=== PATIENT | male | born 1995 | race Caucasian/White ===

== ENCOUNTER 2019-03-01 00:59 | Inpatient (IN) | payer BC, OTHER ==
--- NOTE | 2019-03-01 02:37 | ED ---
Psych HPI - General Chief Complaint: Psychiatric Symptoms Stated Complaint: Suicidal Time Seen by Provider: 03/01/19 01:27 Source: patient Mode of arrival: EMS - History of Present Illness Initial Comments: This patient is a 23-year-old man with history of anxiety who presents to have psychiatric evaluation. The patient states that he had been with some friends who had noticed that he had engaged in some cutting behavior. The patient states that he does is occasionally when he is feeling very stressed. He states that he had taken a shaving razor and made some superficial cuts to the bilateral forearms. The patient states that he is not feeling suicidal. He states that he sometimes does this deal with stress. States his last tetanus shot was less than 4 years ago MD Complaint: other -: hour(s) History of same: Yes Quality: constant Improves With: none Worsens With: none Associated Symptoms: denies other symptoms - Related Data Home Medications Medication Instructions Recorded Confirmed Venlafaxine HCl [Effexor XR] 75 mg PO DAILY 03/01/19 03/01/19 Allergies Allergy/AdvReac Type Severity Reaction Status Date / Time No Known Allergies Allergy Verified 03/01/19 05:49 Review of Systems ROS Statement: Those systems with pertinent positive or pertinent negative responses have been documented in the HPI. ROS Other: All systems not noted in ROS Statement are negative. Constitutional: Denies: fever, chills Respiratory: Denies: cough, dyspnea Cardiovascular: Denies: chest pain, palpitations Gastrointestinal: Denies: abdominal pain, vomiting Musculoskeletal: Denies: back pain Skin: Reports: as per HPI Neurological: Denies: headache, weakness, numbness Past Medical History Past Medical History: No Reported History History of Any Multi-Drug Resistant Organisms: None Reported Past Surgical History: No Surgical Hx Reported Past Psychological History: Anxiety, Depression Smoking Status: Current every day smoker Past Alcohol Use History: Occasional Past Drug Use History: None Reported General Exam Limitations: no limitations General appearance: alert, in no apparent distress Head exam: Present: atraumatic, normocephalic Eye exam: Present: normal appearance. Absent: scleral icterus, conjunctival injection Respiratory exam: Present: normal lung sounds bilaterally. Absent: respiratory distress, wheezes, rales, rhonchi, stridor Cardiovascular Exam: Present: regular rate, normal rhythm, normal heart sounds. Absent: systolic murmur, diastolic murmur, rubs, gallop GI/Abdominal exam: Present: soft. Absent: distended, tenderness, guarding, rebound, mass Extremities exam: Present: other (Patient has some abrasions to the bilateral forearms but no full thickness lacerations.) Back exam: Present: normal inspection Neurological exam: Present: alert, oriented X3 Psychiatric exam: Present: normal affect. Absent: depressed, agitated, flat affect, manic, homicidal ideation, suicidal ideation Skin exam: Present: warm, dry, normal color. Absent: rash Course Vital Signs 03/01/19 03/01/19 01:04 03:54 Temperature 98.3 F 99.6 F Pulse Rate 95 109 H Respiratory 16 16 Rate Blood Pressure 137/94 141/80 O2 Sat by Pulse 99 95 Oximetry Medical Decision Making - Lab Data Result diagrams: 03/02/19 09:19 03/02/19 09:19 Disposition Clinical Impression: Mood disorder Disposition: ADMITTED IP TO THIS [facility] Condition: Fair Is patient prescribed a controlled substance at d/c from ED?: No
[2019-03-01] MEDS ORDERED: MAGNESIUM HYDROXIDE 2,400 MG/10 ML CUP PO PRN (05:38)
[2019-03-01] MEDS ORDERED: LORazepam 1 MG TAB PO PRN ×2 (05:38→11:28)
[2019-03-01] MEDS ORDERED: MAG HYDROX/AL HYDROX/SIMETH 30 ML CUP PO PRN (05:38)
[2019-03-01] MEDS ORDERED: ACETAMINOPHEN TAB 325 MG TAB PO PRN (05:38)
[2019-03-01] MEDS ORDERED: ZIPRASIDONE 20 MG VIAL IM PRN (05:38)
[2019-03-01 06:01] VITALS: BMI 27.2
--- NOTE | 2019-03-01 07:18 | P.CONS ---
History of Present Illness - Reason for Consult Consult date: 03/01/19 - History of Present Illness The patient is a 23 yo M with a PMH of self-cutting presented to the ED for the above-mentioned behavior. He notes that he cuts his forearms with a razor blade when he feels very stressed out. He otherwise denied additional complaints. Denied any suicidal ideation. He further denied chest pain, shortness of breath, cough, fever, chills, abdominal pain, nausea, vomiting, or diarrhea. Review of Systems Pertinent positives and negatives as discussed in HPI, a complete review of systems was performed and all other systems are negative. Past Medical History Past Medical History: No Reported History History of Any Multi-Drug Resistant Organisms: None Reported Past Surgical History: No Surgical Hx Reported Past Anesthesia/Blood Transfusion Reactions: No Reported Reaction Smoking Status: Current every day smoker Medications and Allergies Home Medications Medication Instructions Recorded Confirmed Type Venlafaxine HCl [Effexor XR] 75 mg PO DAILY 03/01/19 03/01/19 History Allergies Allergy/AdvReac Type Severity Reaction Status Date / Time No Known Allergies Allergy Verified 03/01/19 05:49 Physical Exam Vitals: Vital Signs Temp Pulse Pulse Resp BP BP Pulse Ox 03/01/19 05:54 98.7 F 89 18 142/80 03/01/19 03:54 99.6 F 109 H 16 141/80 95 03/01/19 01:04 98.3 F 95 16 137/94 99 Intake and Output 02/28/19 03/01/19 03/01/19 22:59 06:59 14:59 Other: Weight 85.729 kg General: non toxic, no distress, appears at stated age, normal weight Derm: Bilaterally anterior forearm healing lacerations and excoriations warm, dry Head: atraumatic, normocephalic, symmetric Eyes: EOMI, no lid lag, anicteric sclera, pupils equal round reactive to light ENT: Nose and ears atraumatic, no thrush, no pharyngeal erythema Neck: No thyromegaly, no cervical lymphadenopathy, trachea midline, supple Mouth: no lip lesion, mucus membranes moist Cardiovascular: S1S2 reg, no murmur, positive posterior tibial pulse bilateral, no edema, capillary refill less than 2 seconds Lungs: CTA bilateral, no rhonchi, no rales , no accessory muscle use Abdominal: soft, nontender to palpation, no guarding, no appreciable organomegaly, normal bowel sounds Ext: no gross muscle atrophy, muscle strength 5 out of 5 in all 4 extremities grossly, no contractures, Neuro: CN II-XI grossly intact, light touch intact all 4 extremities, finger to nose within normal limits, Psych: Alert, oriented, appropriate affect Assessment and Plan Plan: Overweight -Advised on need for lifestyle modifications Self cutting behavior due to stress -As per psychiatry Thank you for allowing us to participate in the care of this patient. We will follow peripherally. Do not hesitate to contact us with questions. Someone can be reached from the [facility] hospitalist group at all hours of the day at [phone].
[2019-03-01] MEDS: NICOTINE 14MG/24HR PATCH TRANSDERM SCH (09:57)
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
[2019-03-01] MEDS: SERTRALINE 50 MG TAB PO SCH (20:08)
[2019-03-02] MEDS: NICOTINE 14MG/24HR PATCH TRANSDERM SCH (08:22)
--- NOTE | 2019-03-02 09:04 | P.PN ---
Progress Note - Text Interval history: The patient is found in his room he follows me to an interview room. He indicates that his mood is improving. He states that he slept most of the day yesterday so subsequently his sleep last night was impaired. Appetite stable. He indicates his wounds were healing as expected. He has had several conversations with his family and social work has spoken to his mother as well. He states he plans on residing with them upon discharge. He finds his parents supportive. [place] [facility] He plans on attending groups. He notes some cephalgia after taking the Zoloft last evening we will follow that further. Mental status exam: The patient is a 23-year-old male appearing his stated age. He presents with adequate hygiene grooming. He is dressed in hospital gowns. Eye contact is appropriate. He has little spontaneous speech but does answer questions. He demonstrates no verbal or physical aggressiveness. He maintains a constricted affect. He is reporting no acute suicidal or homicidal ideation intent or plan. He reports no auditory or visual hallucinations or any specific delusions. Insight and judgment improving. He remains oriented to person place and date. Plan: The patient will continue on Zoloft as written. We will continue to eval uate him for acute safety risk. We discussed that he may be appropriate for discharge as soon as Monday if clinically appropriate. He is encouraged to fully participate in the milieu. Vital signs reviewed.
[2019-03-02 09:56] LABS: ALT 25 U/L (21-72); AST 21 U/L (17-59); Albumin 4.4 g/dL (3.5-5.0); Alkaline Phosphatase 68 U/L (38-126); Anion Gap 7 mmol/L; Bilirubin, Delta 0.2 mg/dL (0.0-0.2); Bilirubin,Unconjugated 0.9 mg/dL (0.0-1.1); Blood Urea Nitrogen 16 mg/dL (9-20); Calcium 9.8 mg/dL (8.4-10.2); Carbon Dioxide 28 mmol/L (22-30); Chloride 105 mmol/L (98-107); Cholesterol 169 mg/dL (<200); Glucose 121 mg/dL (74-99); HDL Cholesterol 33 mg/dL (40-60); LDL Cholesterol,Calculated 107 mg/dL (0-99); Potassium 4.3 mmol/L (3.5-5.1); Sodium 140 mmol/L (137-145); Total Bilirubin 1.1 mg/dL (0.2-1.3); Triglycerides 143 mg/dL (<150)
[2019-03-02 10:09] LABS: Basophils # (A) 0.1 k/uL (0-0.2); Basophils % (A) 1 %; Eosinophils # (A) 0.2 k/uL (0-0.7); Eosinophils % (A) 3 %; HCT 49.6 % (39.0-53.0); HGB 16.9 gm/dL (13.0-17.5); Lymphocytes # (A) 2.2 k/uL (1.0-4.8); Lymphocytes % (A) 30 %; MCH 30.2 pg (25.0-35.0); MCV 88.7 fL (80.0-100.0); Mean Platelet Volume 6.8; Monocytes # (A) 0.4 k/uL (0-1.0); Monocytes % (A) 6 %; Neutrophils # (A) 4.2 k/uL (1.3-7.7); Neutrophils % (A) 57 %; Platelet Count 283 k/uL (150-450); RBC 5.59 m/uL (4.30-5.90); RDW 12.6 % (11.5-15.5); WBC 7.4 k/uL (3.8-10.6)
[2019-03-02] MEDS: SERTRALINE 50 MG TAB PO SCH (20:09)
[2019-03-02 20:29] LABS: Hemoglobin A1C 5.1 % (4.0-6.0)
[2019-03-03] MEDS: NICOTINE 14MG/24HR PATCH TRANSDERM SCH (08:13)
--- NOTE | 2019-03-03 09:57 | P.PN ---
Progress Note - Text Interval history: The patient is found in group he follows me to an interview room. He indicates his mood is improving. He continues to participate in conversations with his family. His parents plan on coming to this area tonight visiting and helping him get back to their home tomorrow. The patient has been attending groups today. He reports sleep and appetite have been adequate. We discussed the Zoloft he has no questions or concerns. Mental status exam: The patient is alert he presents with adequate hygiene grooming eye contact is appropriate. He is dressed in hospital gowns. Speech is fluent spontaneous nonpressured. He denies having any acute suicidal ideation intent or plan. He is reporting no homicidal ideation intent or plan. He reports no auditory or visual hallucinations or any specific delusions. There is no observed evidence of psychosis. He does not appear hypomanic or manic. He demonstrates no verbal or physical aggressiveness. Insight and judgment improving. Affect is brighter. Plan: The patient will continue on his current medication. We will plan to titrate Zoloft further tomorrow. If he continues to demonstrate clinical improvement/stability we will anticipate discharging him from the mental health unit tomorrow. Vital signs reviewed. He is encouraged to fully participate in groups. They need to monitor for safety.
[2019-03-03] MEDS: SERTRALINE 50 MG TAB PO SCH (20:04)
[2019-03-04 06:26] VITALS: BP 125/75; PULSE 56; RESP 18; TEMP 98
[2019-03-04] MEDS: NICOTINE 14MG/24HR PATCH TRANSDERM SCH (09:02)
--- NOTE | 2019-03-04 09:51 | P.DS ---
Providers Date of admission: 03/01/19 04:56 Expected date of discharge: 03/04/19 Attending physician: Mark Wiseman Consults: 03/01/19 05:38 Consult Physician Routine Consulting Provider: Mart Elizabeth Consult Reason/Comments: H & P, Medical management Do you want consulting provider notified?: Already Contacted Primary care physician: Stated None - Discharge Diagnosis(es) (1) Major depressive disorder, recurrent Current Visit: Yes Status: Acute Priority: High (2) Generalized anxiety disorder Current Visit: Yes Status: Acute Priority: Medium Hospital Course: Brief summary of admission note: This patient is a 23-year-old single male was admitted to the mental health unit suicidal ideation status post self- injurious behavior. The patient presented to the emergency room after he called 911. Just prior to admission he began cutting himself with a razor on his arms and thighs. He had thoughts of letting himself bleed to . He had informed friends of his actions via text and they encouraged him to call 911. He states that his mood has been increasingly depressed and he had been feeling hopeless. The most significant precipitant to his actions appears to be a recent breakup with his girlfriend this past Monday. He states that they had been together for 3 years and thought the relationship is going well and she suddenly broke up with him. For full detail please refer to my psychiatric evaluation dated 03/01/2019. Summary of hospital course: The patient was admitted to the mental health unit voluntarily. We reviewed his presenting symptoms and treatment options. We decided to treat his symptoms of depression and anxiety with Zoloft. We discussed potential benefits and side effects of Zoloft and his questions were answered. He was seen by internal medicine for routine history and physical exam. Social work met with the patient to complete a psychosocial assessment and for discharge planning purposes. He participated in group. He demonstrated no agitated behavior. He had several phone calls with his family and they visited last evening. He feels that he has stabilized he reports no suicidal ideation intent or plan. He verbalizes future oriented thinking spontaneously. [place] immediately after discharge. His self-inflicted wounds are healing without any sign of infection. Mental status exam: The patient is alert he presents with adequate hygiene grooming he is dressed in his own clothing. Eye contact is appropriate speech is fluent spontaneous nonpressured. He reports no suicidal ideation intent or plan. He reports no homicidal ideation intent or plan. He endorses no auditory or visual hallucinations or any specific delusions. There is no observed evidence of psychosis. He demonstrates no tangential thinking loose associations or flight of ideas. He does not appear hypomanic or manic. Affect is appropriately expressive and appears euthymic. He demonstrates no verbal or physical aggressiveness. Insight and judgment grossly intact. He remains oriented to person place and date. He spontaneously describes future oriented thinking. Impressions 1. Major depressive disorder recurrent severe without psychosis, generalized anxiety disorder 2. Termination of 3 year relationship with girlfriend Plan: The patient will be discharged mental health unit today. His parents will be picking him up and he will [place] [facility] to reside with his parents. Social work will help him arrange outpatient mental health follow-up. He will continue on Zoloft and we'll titrate the dose to 100 mg at bedtime. He is instructed to abstain from any use of alcohol or any other substance as they can precipitate mood symptoms and elevate his safety risk. At this time there is no imminent safety risk he is appropriate for transition outpatient care. He is instructed to go to the nearest emergency room with any acute safety concerns. Patient Condition at Discharge: Stable Plan - Discharge Summary Discharge Rx Participant: No New Discharge Prescriptions: New Nicotine 14Mg/24Hr Patch [Habitrol] 1 patch TRANSDERM DAILY #14 patch Sertraline [Zoloft] 100 mg PO DAILY #30 tab Discontinued Venlafaxine HCl [Effexor XR] 75 mg PO DAILY Discharge Medication List Nicotine 14Mg/24Hr Patch [Habitrol] 1 patch TRANSDERM DAILY #14 patch 03/04/19 [Rx] Sertraline [Zoloft] 100 mg PO DAILY #30 tab 03/04/19 [Rx] Follow up Appointment(s)/Referral(s): Outpatient,[facility] [Other] - 03/08/19 9:00 am (Sara Durán 01/06 @ 09:00 please arrive 30 minutes early for paperwork 05/13/18 @ 13:00 with TROY Sung ) None,Stated [Primary Care Provider] - 1-2 days Activity/Diet/Wound Care/Special Instructions: Activity and diet as tolerated. No guns or weapons in the home. No drugs or alcohol not prescribed by physician. Take all medications as prescribed. Attend all follow up appointments as scheduled. If in need of medication refills, please go to your primary care physician, or to your out patient psychiatric provider. If in crisis, please call , or go to the nearest ER.
== END 2019-03-04 11:00 | disposition home or self-care (01) | DRG 885 ==
LOC: EC 00:59 → 3MHU 04:56
PROVIDERS: ADMIT Psychiatry & Neurology Psychiatry; ATTEND Psychiatry & Neurology Psychiatry
DX: F33.2 Major depressive disorder, recurrent severe without psychotic features (principal); R45.851 Suicidal ideations; F17.200 Nicotine dependence, unspecified, uncomplicated; F41.1 Generalized anxiety disorder; R51 Headache; S41.112A Laceration without foreign body of left upper arm, initial encounter; S41.111A Laceration without foreign body of right upper arm, initial encounter; S71.112A Laceration without foreign body, left thigh, initial encounter; S71.111A Laceration without foreign body, right thigh, initial encounter; E66.3 Overweight; Z68.28 Body mass index [BMI] 28.0-28.9, adult; Z79.899 Other long term (current) drug therapy; Z91.5 Personal history of self-harm; X78.8XXA Intentional self-harm by other sharp object, initial encounter
CPT/HCPCS: 80053; 80061; 82075; 82248; 83036; 84443; 85025; 99285